=== PATIENT | female | born 1955 | race Caucasian/White ===

== ENCOUNTER 2016-11-07 21:03 | Emergency (ER) | payer OTHER ==
[~2016-11-07] VITALS: Ht 149.9 cm; Wt 115.9 kg
[~2016-11-07 21:03] MED LIST: ALBU18HF INH; AMOX875T2 PO; CLON0.5T PO; CYCL5TAB PO; DIPH1TAB PO; FLUT9.9S NS; HYDR-3740 PO; KEP500TA PO; MS15TCR PO; SERT100T PO
[2016-11-07 21:14] VITALS: BP 154/85; PULSE 78; RESP 16; O2SAT 99
--- NOTE | 2016-11-07 23:37 | ED.REPORT ---
HPI-General Illness Date of Service Nov 07, 2016 ED Provider: Luisito Scherer MD Pt is a 61 y/o female w/ a hx of chronic shoulder pain with narcotic dependence presenting to the ED for a medication refill. The patient went to see her pain physician 2 days ago and was given scripts to fill today. Went in today to fill them but the rx paper didn't pass their quality check. The pharmacy was unable to contact the pain clinic because they are closed today and will be closed over the weekend. Nursing Notes Stated Complaint: MEDICATIONS/PAIN Chief Complaint: General Complaint Allergies: Coded Allergies: Sulfa (Sulfonamide Antibiotics) (Verified Allergy, Severe, 11/20/15) TAPE (Verified Allergy, Intermediate, RED RASH, 11/20/15) morphine (Verified Allergy, Intermediate, inflammation, 11/07/16) only Mylan brand fentanyl (Verified Allergy, Mild, hives, 11/07/16) NSAIDS (Non-Steroidal Anti-Inflamma (Verified Allergy, Unknown, 11/20/15) iron (Verified Allergy, Unknown, 11/20/15) SPECIFICILLY IRON INFUSIONS methadone (Verified Allergy, Unknown, 11/20/15) omeprazole (Verified Allergy, Unknown, 11/20/15) Uncoded Allergies: KEPRA (Allergy, Mild, hives, 11/07/16) Scheduled Amoxicillin (Amoxicillin) 875 Mg Tablet 875 MG PO BID Diphenoxylate/Atropine 2.5-0.025 mg (Lomotil 2.5-0.025 mg) 1 Each Tablet 1 TABLET PO PC Levetiracetam (Keppra) 500 Mg Tablet 1,000 MG PO BID Morphine Sulfate ER (MS Contin) 15 Mg Tablet.er 15 MG PO q8hr Sertraline HCl (Zoloft) 100 Mg Tablet 100 MG PO DAILY Scheduled PRN Albuterol Sulfate (Ventolin HFA Inhaler) 200 Puff/18 Gm Inhaler 1 PUFF INH Q4 PRN PRN For Wheezing Clonazepam (Klonopin) 0.5 Mg Tablet 0.5 MG PO BID PRN PRN For Anxiety Cyclobenzaprine (Cyclobenzaprine) N Tablet 5 MG PO TID PRN PRN For Spasm Hydrocodone-Acetaminophen 10-325 mg (Hydrocodone-Acetaminophen 10-325 mg) 1 Each Tablet 1 TABLET PO TID PRN PRN For Pain Miscellaneous Medications Fluticasone Propionate (Flonase Allergy Relief) 50 Mcg/Actuation [place].susp 9.9 ML NS General Time Seen by MD: 22:01 Chief Complaint Other (med refill) Hx Obtained From: Patient Arrived By: Walk-in Sudden in Onset?: No Onset Occurred: 2 days ago Symptom Duration: Since onset Quality: Painful (shoulder) Severity: Current: Moderate Severity: Maximum: Moderate Past Medical History Past Medical History Seizure disorder TIA Fibromyalgia Rheumatoid arthritis-has a head of maintenance who believes it is lyme disease instead. Endorses being infected in 1987 while living near [facility]. She believes it was from a visiting tick that was brought in [place] a travelling [place] visitor. Hypothyroidism History of Seizure Disorder Obstructive sleep apnea Cervical Spinal Stenosis with anterior spine fusion Past Surgical History Hemorrhoids (removed) Cervical Spinal surgery (disk removal and implant) Smoking History Former Smoker Social History Alcohol Use: Denies alcohol use Drug Use: Denies drug use Other Social History: Ambulatory Status Cane Review of Systems Full Review of Systems Musculoskeletal: Reports: Extremity pain Complete sys rev & neg: except as marked. Physical Exam Vital Signs Vital Signs Date Time Temp Pulse Resp B/P Pulse Ox O2 Delivery O2 Flow Rate FiO2 11/08/16 00:26 89 16 146/87 98 Room Air 11/07/16 21:14 36.8 78 16 154/85 99 Room Air Initial VS: Reviewed, Vital signs normal Head / Eyes: Atraumatic, Normocephalic, PERRL ENT: Mucous membranes moist, Conjunctiva normal, No scleral icterus Neck: Supple, Full range of motion Respiratory: Breath sounds normal, Clear to auscultation, No respiratory distress Cardiovascular: Regular rate & rhythm, Heart sounds normal, Intact distal pulses Abdomen / GI: Soft, Non-tender Extremities: Vascular intact, Neuro intact, No swelling, No tenderness Skin: Warm, Dry, No cyanosis Neurologic: Alert, Oriented, Nonfocal Psychiatric: Mood/affect normal, Behavior normal, Normal thought content General/Constitutional: Awake, Alert, No acute distress, Well appearing, Cooperative, Not toxic appearing Re-Eval/Medical Decision Med Decision/Clinical Course Pt is a 61 y/o female w/ a hx of chronic shoulder pain with narcotic dependence presenting to the ED for a medication refill. The patient went to see her pain physician 2 days ago and was given scripts to fill today. Went in today to fill them but the rx paper didn't pass their quality check. The pharmacy was unable to contact the pain clinic because they are closed today and will be closed over the weekend. Here in the emergency department the patient is afebrile stable vital signs and no apparent distress. No acute medical issues. Prescriptions appear genuine. Advised patient that we cannot refill prescriptions for chronic narcotic pain medications in the emergency room. However, see no evidence that this patient is failing multiple narcotic prescriptions from multiple providers and engaging and questionable narcotic pain med seeking behavior. Therefore, I have provided her with 10 tablets of Warren. I explained that we will felt no further narcotic pain medicine prescriptions in this emergency department. She will follow up with her primary care physician first thing on Thursday to ascertain as to why there was concern about the paper upon which her prescriptions were printed in how to go about filling these. Prior to discharge follow-up and return precautions were reviewed in detail with the patient who verbalized understanding and agreement with the plan. The patient was discharged in stable condition. Time of Eval: 23:58 Re-Evaluation/Progress Note: Pt rechecked. Informed pt of plan for treatment. Pt understands and agrees with plan for treatment. F/U instructions and RTER warnings given. All questions addressed. Counseled Regarding: Diagnosis, Need for follow-up, When/why to return to ED Discharge & Departure Primary Impression: Medication refill Additional Impressions: Opiate dependence Substance use status: with unspecified opioid-induced disorder Qualified Code : F11.29 - Opioid dependence with unspecified opioid-induced disorder Pain syndrome, chronic Disposition: Home Discharge Condition All VS Reviewed: Yes Condition: Stable Additional Instructions: Thank you for seeking care at the emergency room. You were seen today requesting a refill of opiate pain medications. You will be sent home with 10 tabs of Warren to take over the weekend. Future visits to the ER will not result in medication refill for chronic pain. Our primary goal today in the ED was to evaluate you for any life-threatening conditions. Your evaluation was reassuring. You should follow-up with your primary doctor in the next week. You should return to the ED immediately if you develop fevers, vomiting, shortness of breath, chest pain, lightheadedness, weakness or any other concerning signs or symptoms. Thank you for letting us partake in your care today. Referrals: Byron Rivera MD (PCP) Scribe Attestation Portions of this note were transcribed by Roney Ramsey. I, Dr. Scherer personally performed the history, physical exam and medical decision-making; I reviewed and confirmed the accuracy of the information in the transcribed note. Signed by Rob Ritchie, 11/07/16 - [id number] copies to: Byron Rivera MD, Beck O MD Nov 07, 2016 23:37 RONEY RAMSEY Nov 07, 2016 23:55
[2016-11-08] MEDS ORDERED: _HYDROcodone/APAP 5-325 mg Tablet PO PRN
[2016-11-08 00:26] VITALS: BP 146/87; PULSE 89; RESP 16; O2SAT 98
== END 2016-11-08 00:43 | disposition home or self-care (01) ==
LOC: SED 21:03
DX: F11.29 Opioid dependence with unspecified opioid-induced disorder (principal); M25.519 Pain in unspecified shoulder; G89.29 Other chronic pain; Z76.0 Encounter for issue of repeat prescription; E03.9 Hypothyroidism, unspecified; M79.7 Fibromyalgia; M06.9 Rheumatoid arthritis, unspecified; Z86.73 Personal history of transient ischemic attack (TIA), and cerebral infarction without residual deficits; Z87.891 Personal history of nicotine dependence; Z88.2 Allergy status to sulfonamides; Z88.5 Allergy status to narcotic agent; Z88.8 Allergy status to other drugs, medicaments and biological substances; Z91.048 Other nonmedicinal substance allergy status

== ENCOUNTER 2016-11-10 17:49 | Emergency (ER) | payer OTHER ==
[~2016-11-10] VITALS: Ht 149.9 cm; Wt 116.0 kg
[2016-11-10 17:53] VITALS: BP 148/59; PULSE 78; RESP 15; O2SAT 100
[2016-11-10] MEDS ORDERED: FLUT16SP INHALATION (18:08)
[2016-11-10] MEDS ORDERED: TOPI50TA88 PO (18:08)
[2016-11-10] MEDS ORDERED: MORP-33 PO (18:08)
[2016-11-10] MEDS ORDERED: SERT100T9 PO (18:08)
--- NOTE | 2016-11-10 18:09 | ED.REPORT ---
HPI-General Illness Date of Service Nov 10, 2016 ED Provider: Miles Carter MD Patient is a 61 year old female with a hx of seizures who presents to the ED via EMS complaining of a possible seizure while driving onset one hour ago. Associated symptoms include mild confusion that is gradually improving, a mild, R sided headache, and diarrhea onset 3 days ago (secondary to not taking morphine). She is amnesic to the event and her told her she "spaced out ". Per , she was having symptoms characteristic of her previous seizures but did not have grand mal symptoms. She has had 2 grand mal seizures previously. She denies nausea, vision changes, chest pain, constipation, SOB, hematochezia, or any other symptoms. No new unilateral weakness. She was at Dr. Rivera' office and received a tetanus shot just prior to the incident. She was asymptomatic before the incident and has not been ill recently. Patient takes Topamax daily. Her neurologist is Dr. Vasquez. Nursing Notes Stated Complaint: SEIZURE Chief Complaint: Neuro Symptoms/ Deficits Nursing Notes Reviewed: Yes Allergies: Coded Allergies: Sulfa (Sulfonamide Antibiotics) (Verified Allergy, Severe, 11/20/15) TAPE (Verified Allergy, Intermediate, RED RASH, 11/20/15) morphine (Verified Allergy, Intermediate, inflammation, 11/07/16) only Mylan brand fentanyl (Verified Allergy, Mild, hives, 11/07/16) NSAIDS (Non-Steroidal Anti-Inflamma (Verified Allergy, Unknown, 11/20/15) iron (Verified Allergy, Unknown, 11/20/15) SPECIFICILLY IRON INFUSIONS methadone (Verified Allergy, Unknown, 11/20/15) omeprazole (Verified Allergy, Unknown, 11/20/15) Uncoded Allergies: KEPRA (Allergy, Mild, hives, 11/07/16) Scheduled Morphine Sulfate ER (Morphine Sulfate ER) 30 Mg Tablet 30 MG PO BID Sertraline HCl (Zoloft) 100 Mg Tablet 100 MG PO DAILY Sertraline HCl (Sertraline) 100 Mg Tablet 100 MG PO DAILY Topiramate (Topiramate) 50 Mg Tablet 150 MG PO TID Scheduled PRN Albuterol Sulfate (Ventolin HFA Inhaler) 200 Puff/18 Gm Inhaler 1 PUFF INH Q4 PRN PRN For Wheezing Clonazepam (Klonopin) 0.5 Mg Tablet 0.5 MG PO BID PRN PRN For Anxiety Fluticasone Propionate (Fluticasone Propionate Nasal) 16 Gm Donie.susp 1 SPRAY INHALATION DAILY PRN PRN congestion Hydrocodone-Acetaminophen 10-325 mg (Hydrocodone-Acetaminophen 10-325 mg) 1 Each Tablet 1 TABLET PO TID PRN PRN For Pain General Time Seen by MD: 18:07 Chief Complaint Seizure Hx Obtained From: Patient, Spouse Arrived By: Ambulance Sudden in Onset?: Yes Onset Occurred: 1 - 4 hours ago Recent Healthcare: Recent doctor visit Similar Sx Previous: Yes Past Medical History Past Medical History Seizure disorder TIA Fibromyalgia Rheumatoid arthritis-has a records management clerk who believes it is lyme disease instead. Endorses being infected in [address] [facility]. She believes it was from a visiting tick that was brought in by a travelling resort visitor. Hypothyroidism History of Seizure Disorder Obstructive sleep apnea Cervical Spinal Stenosis with anterior spine fusion Chronic shoulder pain with narcotic dependance Reports: Hypertension Reports: Atrial fibrillation Past Surgical History Hemorrhoids (removed) Cervical Spinal surgery (disk removal and implant) BCT Breast reduction salpingectomy Reports: , Cholecystectomy, Hysterectomy Smoking History Former Smoker Social History Alcohol Use: Denies alcohol use Drug Use: Denies drug use Other Social History: Ambulatory Status Cane Review of Systems Full Review of Systems Respiratory: Denies: Shortness of breath Cardiovascular: Denies: Chest pain GI: Reports: Diarrhea, Denies: Constipation, Hematochezia, Nausea Neurologic: Reports: Confusion, Headache, Seizure, Denies: Vision change Complete sys rev & neg: except as marked. Physical Exam Vital Signs Vital Signs Date Time Temp Pulse Resp B/P Pulse Ox O2 Delivery O2 Flow Rate FiO2 11/10/16 22:06 70 18 139/52 96 Room Air 11/10/16 20:30 36.8 74 15 143/57 95 Room Air 11/10/16 17:53 36.8 78 15 148/59 100 Room Air Initial VS: Reviewed General/Constitutional: Awake, Alert, Well developed, Well nourished Not diaphoretic. Head / Eyes: Atraumatic, Normocephalic EOM are normal. Pupils are equal, round, and reactive to light ENT: Airway patent, Mucous membranes moist, Pharynx NL No lacerations on tongue Oropharynx is clear and moist. No oropharyngeal exudate. Neck: Supple no tracheal deviation. Respiratory / Chest: No respiratory distress Effort normal and breath sounds normal Cardiovascular: Heart rate NL, Regular rhythm Equal and intact distal pulses throughout. Abdomen: Atraumatic, Soft, Non-tender, No guarding, No rebound, BS normoactive , No distention Upper Extremities Upper Extremity / MS: Inspection NL Range of motion grossly intact, moving all extremities. No edema or tenderness appreciated. Lower Extremity / Pelvis / MS: Inspection NL Range of motion grossly intact, moving all extremities. No edema or tenderness appreciated. Skin: Warm, Dry no rashes or pallor appreciated. Neurologic: Oriented X3 AOx3. Grossly nonfocal exam. Strength and sensation intact and equal to bilateral upper and lower extremities. Cranial nerves grossly intact. Normal finger to nose testing. No pronator drift. Psychiatric: Affect NL, Mood NL Behavior appears normal. Interpretation & Diagnostics Lab Results Interpretation Result Diagram: 11/10/16 1855 11/10/16 1855 Test 11/10/16 18:23 11/10/16 18:55 Urine Color Yellow (YELLOW) Urine Appearance Hazy (CLEAR,HAZY) Urine pH 5.5 (5.0-8.0) Urine Specific Keller 1.020 (1.003-1.035) Urine Protein Negativemg/dL (NEG,TRACE) Urine Glucose (UA) Negativemg/dL (NEGATIVE) Urine Ketones Negativemg/dL (NEGATIVE) Urine Occult Blood Negative (NEGATIVE) Urine Nitrite Negative (NEGATIVE) Urine Bilirubin Negative (NEGATIVE) Urine Urobilinogen Normalmg/dL (NORMAL) Urine Leukocyte Esterase Negative (NEGATIVE) Urine RBC 0-2/hpf (0-2) Urine WBC 0-5/hpf (0-5) Urine Epithelial Cells Moderate/hpf (NONE-MOD) Urine Crystals None seen (NONE SEEN) Urine Bacteria None/hpf (NONE-FEW) Urine Hyaline Casts None/lpf (NONE) Urine Granular Casts None seen (NONE SEEN) Urine Waxy Casts None seen (NONE SEEN) Urine Red Blood Cell Casts None seen (NONE SEEN) Urine White Blood Cell Casts None seen (NONE SEEN) Urine Mucus None seen (None Seen) Urine Trichomonas None seen (NONE SEEN) Urine Yeast None (NONE SEEN) Urinalysis Comment None Hold Urine Received (Received) White Blood Count 4.5th/mm3 (3.8-10.1) Red Blood Count 4.61mil/mm3 (3.90-5.20) Hemoglobin 13.9g/dL (12.0-15.6) Hematocrit 41.1% (35.0-46.0) Mean Corpuscular Volume 89.2fL (81-100) Mean Corpuscular Hemoglobin 30.2pg (27.0-35.0) Mean Corpuscular Hemoglobin Concent 33.8% (32.0-37.0) Red Cell Distribution Width 12.2% (12.3-15.4) Platelet Count 147bil/L (150-400) Neutrophils (%) (Auto) 67.4% (40-74) Lymphocytes (%) (Auto) 24.8% (14-46) Monocytes (%) (Auto) 6.3% (4-12) Eosinophils (%) (Auto) 1.3% (0-5) Basophils (%) (Auto) 0.2% (0-3) Prothrombin Time 10.0sec (8.1-12.5) Prothromb Time International Ratio 0.94ratio Sodium Level 136mEq/L (134-144) Potassium Level 4.5mEq/L (3.5-5.2) Chloride Level 102mEq/L (97-108) Carbon Dioxide Level 21mmol/L (18-29) Blood Urea Nitrogen 19mg/dL (6-24) Creatinine 0.69mg/dL (0.57-1.00) Estimat Glomerular Filtration Rate 125mL/min (>59) Glucose Level 127mg/dL (60-99) Calcium Level 8.9mg/dL (8.5-10.1) Total Bilirubin 0.3mg/dL (0.0-1.2) Aspartate Amino Transf (AST/SGOT) 16U/L (0-50) Alanine Aminotransferase (ALT/SGPT) 15U/L (0-32) Alkaline Phosphatase 53U/L (25-165) Total Protein 6.9g/dL (6.4-8.4) Albumin 3.9g/dL (3.4-5.0) Alcohols < 10mg/dL (0-10) ECG Interpretation ECG Interpretation: No acute ischemia sinus rate 66 Multiple PVC's Inferior infarct, old Time: 18:45 Interpreted by: ED physician X-Ray Chest Interpretation Chest Xray Interpretation: IMPRESSION: No acute pulmonary process. Dictated by: Luna Danielle M.D. on 11/10/2016 at 19:10 Approved by: Luna Danielle M.D. on 11/10/2016 at 19:12 View: Portable, 1 view Interpretation / Wet Read by: Interpret - Radiologist CT Head Interpretation CT ANGIO HEAD/NECK: IMPRESSION: 1. No acute intracranial process. 2. No areas of hemodynamically significant stenosis, vascular occlusion or aneurysmal dilation within the anterior circulation. 3. No areas of hemodynamically significant stenosis, vascular occlusion or aneurysmal dilation within the posterior circulation. 4. No areas of hemodynamically significant stenosis, vascular occlusion or aneurysmal dilation within the neck vasculature. Dictated by: Luna Danielle M.D. on 11/10/2016 at 20:36 Approved by: Luna Danielle M.D. on 11/10/2016 at 20:38 Interpretation / Wet Read by: Interpret - Radiologist Re-Eval/Medical Decision Med Decision/Clinical Course 61-year-old female with a complicated past medical history including seizures, TIA presenting to the ED for evaluation of a seizure while sitting at a stoplight shortly prior to arrival. Upon arrival here, patient is endorsing feeling "spacey" but states that her symptoms are improving. She has a mild headache, also improving. No new unilateral symptoms. Patient states that she does have some chronic right-sided numbness and tingling, no changes today. CTA negative for acute abnormality. Laboratory studies non-actionable. Patient does take Topamax and states that she has been taking her normal dose. No recent illnesses. Discussed the case with the patient's neurologist appreciate recommendations. Plan discharge with very careful return precautions , follow-up in clinic. Patient instructed not to drive for at least 6 months; she is to discuss this with her neurologist before resuming driving. Time of Eval: 21:40 Re-Evaluation/Progress Note: Rechecked patient. She is feeling better. Discussed plan for discharge with close follow up. Patient understands and agrees with plan. All questions addressed at this time. Consultation : Referral / Consult Name: Janessa Vasquez MD Consulted With: Neurology Call Returned at: 21:18 Sales Negotiator: Will see in office, Agrees with eval, Agrees with plan Note: Discussed pt's case. Obtain Topamax level. Will see pt in office. Counseled Regarding: Diagnosis, Lab results, Need for follow-up, When/why to return to ED Discharge & Departure Primary Impression: Seizure Disposition: Home Discharge Condition All VS Reviewed: Yes Condition: Improved Patient Instructions: Recurrent Seizures in Adults (ED) Additional Instructions: Thank you for entrusting us with your care. I called your neurologist Dr. Vasquez and she would like you to call her office tomorrow morning to establish a follow up appointment within the next week. Do not drive for 6 months. Continue to take your daily seizure medication. Return to the emergency department if you develop numbness, weakness, trouble speaking, or any other new or worsening symptoms. Referrals: Byron Rivera MD (PCP) Scribe Attestation Portions of this note were transcribed by Angelika Carrasquillo. I, Dr. Carter personally performed the history, physical exam and medical decision-making; I reviewed and confirmed the accuracy of the information in the transcribed note. Signed by: Angelkia Carrasquillo 11/10/16, [id number] copies to: Janessa Vasqeuz MD; Byron Rivera MD, William B MD Nov 10, 2016 18:09 ANGELIKA CARRASQUILLO Nov 10, 2016 18:20
[2016-11-10] MEDS ORDERED: 0.9% Sodium Chloride 1,000 ML IV ONE (18:24)
[2016-11-10 18:42] LABS: APPEARANCE,URINE HAZY (CLEAR,HAZY); COLOR,URINE YELLOW (YELLOW); OCCULT BLOOD,URINE NEGATIVE (NEGATIVE); PH,URINE 5.5 (5.0-8.0); UROBILINOGEN,URINE NORMAL (NORMAL)
[2016-11-10 19:12] LABS: BASOPHILS % (AUTO) 0.2 % (0-3); EOSINOPHILS % (AUTO) 1.3 % (0-5); MONOCYTES % (AUTO) 6.3 % (4-12); Mean Corpuscular Hemoglobin 30.2 pg (27.0-35.0); Mean Corpuscular Volume 89.2 fL (81-100); NEUTROPHILS % (AUTO) 67.4 % (40-74); Platelet Count 147 bil/L (150-400)
--- NOTE | 2016-11-10 19:14 | DRSVH ---
PROCEDURE: X-RAY CHEST ONE VIEW, PORTABLE ([id number]) INDICATIONS: seizure TECHNIQUE: One view of the chest was acquired. COMPARISON: [facility], CR, CHEST 1VW (PORTABLE), 09/28/2013, 19:47. [facility], CR, XR CHEST 1VW (PORTABLE), 03/11/2015, 21:25. FINDINGS: Surgical changes and devices: None. Lungs and pleura: No pleural effusions or pneumothorax. Lungs are clear. Mediastinum: Mediastinal contours appear normal. Heart size is normal. Bones and chest wall: No suspicious bony lesions. Overlying soft tissues appear unremarkable. IMPRESSION: No acute pulmonary process. Dictated by: Luna Danielle M.D. on 11/10/2016 at 19:10 Approved by: Luna Danielle M.D. on 11/10/2016 at 19:12
[2016-11-10] MEDS ORDERED: HYDROcodone-APAP 10-325 mg PO ONE (19:15)
[2016-11-10] MEDS ORDERED: Ondansetron 2 mg/mL 2 mL Inj IVPUSH ONE (19:15)
[2016-11-10 19:24] LABS: INR 0.94 ratio
[2016-11-10 20:30] VITALS: BP 143/57; PULSE 74; RESP 15; O2SAT 95
--- NOTE | 2016-11-10 20:40 | DRSVH ---
PROCEDURE: CT ANGIO HEAD AND NECK (P) INDICATIONS: seizure; eval for bleed, mass, stroke, other abnl TECHNIQUE: Pre-contrast 4.5 mm thick sections acquired from the foramen magnum to the vertex. After the adminis tration of intravenous contrast, 1 mm thick sections acquired from the aortic arch through the [place] of [place]. Post-contrast 4.5 mm thick sections then re-acquired from the foramen magnum to the vert ex. 3-dimensional [id number] (MIP) and/or volume rendering reformats were acquired of the central intracranial vasculature and neck separately. For radiation dose reduction, the foll owing was used: automated exposure control, adjustment of mA and/or kV according to patient size. COMPARISON: [facility], CT, CT BRAIN WO CON, 10/16/2015, 19:14. FINDINGS: Image quality: Excellent. BRAIN: CSF spaces: Ventricles are normal in size and shape. Basal cisterns are patent. No extra-axial flu id collections. Brain: No midline shift. No intracranial bleeds or masses. Espino-white matter interface appears int act. Skull and face: Calvarium and facial bones appear intact, without suspicious lesions. Orbits appear normal. Sinuses: Sinuses and mastoids are clear. HEAD CT ANGIOGRAPHY: Anterior circulation: Intracranial internal carotid arteries are normal in size and flow. The flow within the paired anterior cerebral arteries is normal and symmetric. The flow within the middle cer ebral arteries is normal and symmetric. The anterior communicating artery is seen. No aneurysms are seen. Posterior circulation: Visualized portions of the vertebral arteries demonstrate normal caliber, and join to form a normal appearing basilar artery. Flow within the posterior cerebral arteries is norm al and symmetric. No aneurysms are seen. NECK CT ANGIOGRAPHY: Carotid system: The great vessels demonstrate a conventional anatomy as they arise from the aortic a [facility]. The origins of the common carotid arteries appear patent. The common carotid arteries demonstr ate normal caliber and courses. The bifurcation regions are both widely patent. The internal caroti d arteries demonstrate normal calibers and courses. Posterior circulation: The origins of the vertebral arteries both appear widely patent. The more chang perior extracranial portions of both vertebral arteries also demonstrate normal courses and calibers. They join to form a normal appearing basilar artery. Soft tissues: Visualized neck soft tissues demonstrate no suspicious abnormalities. Bones: No suspicious bony lesions. Visualized cervical spine appears normally aligned. IMPRESSION: 1. No acute intracranial process. 2. No areas of hemodynamically significant stenosis, vascular occlusion or aneurysmal dilation within the anterior circulation. 3. No areas of hemodynamically significant stenosis, vascular occlusion or aneurysmal dilation within the posterior circulation. 4. No areas of hemodynamically significant stenosis, vascular occlusion or aneurysmal dilation within the neck vasculature. Dictated by: Luna Danielle M.D. on 11/10/2016 at 20:36 Approved by: Luna Danilele M.D. on 11/10/2016 at 20:38
[2016-11-10 22:06] VITALS: BP 139/52; PULSE 70; RESP 18; O2SAT 96
== END 2016-11-10 22:12 | disposition home or self-care (01) ==
LOC: EDBD 17:49 → SED 17:49
DX: G40.909 Epilepsy, unspecified, not intractable, without status epilepticus (principal); R19.7 Diarrhea, unspecified; E03.9 Hypothyroidism, unspecified; I10 Essential (primary) hypertension; I48.91 Unspecified atrial fibrillation; M79.7 Fibromyalgia; Z86.73 Personal history of transient ischemic attack (TIA), and cerebral infarction without residual deficits; Z87.891 Personal history of nicotine dependence; Z88.2 Allergy status to sulfonamides; Z88.5 Allergy status to narcotic agent; Z88.6 Allergy status to analgesic agent; Z88.8 Allergy status to other drugs, medicaments and biological substances
CPT/HCPCS: 36415; 70496; 70498; 71010; 80053; 80201; 81001; 82948; 85025; 85610; 93005; 96361; 96374; 99285; G0480; J2405; J7030; Q9967